=== PATIENT | female | born 2000 | race Caucasian/White ===

== ENCOUNTER 2023-02-25 20:19 | Emergency (ER) | payer MEDICAID, SELFPAY ==
[2023-02-25 20:22] VITALS: BP 133/74; PULSE 81; RESP 18; TEMP 36.6; O2SAT 97; BMI 34.0
--- NOTE | 2023-02-25 20:40 | ED.GENADULT ---
HPI - General Adult General Chief complaint: Upper Respiratory Symptoms Stated complaint: asthma, sob,wheezing Time Seen by Provider: 02/25/23 20:33 Source: patient, RN notes reviewed and old records reviewed Mode of arrival: ambulatory Limitations: no limitations History of Present Illness HPI narrative: 22-year-old female with past medical history significant for asthma presents for evaluation of ?being sick. ? The patient reports that she has had cough, congestion for about 2 months. She states that over the last week her symptoms worsen with facial pressure, congestion, cough and wheezing. She reports that she has an old inhaler from high school which she use which helped shortness of breath and wheezing Denies any fevers or chills No other complaints or concerns at this time Related Data Previous Rx's Medication Instructions Recorded albuterol sulfate 90 mcg/actuation 2 puff inhalation Q4-6H PRN 02/25/23 aerosol inhaler shortness of breath or wheezing #6.7 grams azithromycin 250 mg tablet 250 mg PO DAILY 4 days #4 tabs 02/25/23 prednisone 20 mg tablet 40 mg (2 x 20 mg) PO DAILY #8 tabs 02/25/23 Allergies Allergy/AdvReac Type Severity Reaction Status Date / Time shellfish derived Allergy Unknown OROPHARENGEAL Verified 02/25/23 20:21 [SHELLFISH DERIVED] SWELLING Review of Systems Constitutional: Constitutional: Denies chills, Denies fever(s), Reports headache(s) and Reports malaise ENT: Reports dry mouth, Reports headache(s), Reports sinus pain, Reports sinus pressure and Reports sore throat Cardiovascular: Cardiovascular: Reports dyspnea Respiratory: Respiratory: Reports cough and Reports dyspnea Gastrointestinal: Gastrointestinal: Denies abdominal pain and Denies nausea Integumentary/Breasts: Skin/Breast: Denies rash Neurologic: Reports headache(s) Physical Exam ED Vital Signs: Vital Signs - 24 hr 02/25/23 20:22 Temperature 97.9 F Pulse Rate 81 Respiratory Rate 18 Blood Pressure 133/74 Pulse Oximetry 97 Oxygen Delivery Method Room Air BMI result Body Mass Index 34.0 Const General: healthy appearing, comfortable, no acute distress, alert and awake Nutritional Appearance: well nourished Orientation/consciousness: patient oriented x3 HENMT Head: Yes normocephalic and Yes atraumatic Ears: TM's normal bilaterally and EAC's normal Face and sinus: Yes sinus tenderness Eyes Eyelids: Yes eyelids normal Conjunctivae: conjunctivae normal Sclerae: sclerae normal Corneas: corneas normal Pupils: Equal, round and reactive pupils present EOM: EOMs intact bilaterally Neck Neck: Yes full ROM Resp Effort & Inspection: normal respiratory effort, able to speak in complete sentences and not labored Auscultation: wheezes Cardio Rate: regular rate Rhythm: regular rhythm GI Inspection: No distended Palpation (GI): Soft to palpation, not firm, nontender, no guarding and not rigid Skin General skin exam: elasticity normal Neuro General: patient oriented x3 Cranial nerves: Yes Equal, round and reactive pupils present and Yes Bilaterally intact EOM present Cognition (Neuro): normal cognition Extrem Other: Moving all extremities well without any obvious deformities Medical Decision Making Medical Decision Making MDM Narrative: 22-year-old female presents for evaluation of upper respiratory symptoms for the last couple of months that worsened over the last week. She has wheezing on exam with stable vital signs. She has sinus pressure. Will treat her with azithromycin and prednisone for an upper respiratory infection given the duration of her symptoms. She had a negative COVID test earlier today. Patient given a breathing treatment prior to discharge Differential Diagnosis Differential Diagnoses: The differential diagnosis associated with the presentation includes Upper respiratory infection Viral syndrome Sinusitis Pneumonia Bronchitis COVID-19 Discharge Plan Discharge Clinical Impression: Upper respiratory infection Patient Disposition: Home, Self-Care Instructions: Upper Respiratory Infection (ED) Prescriptions: New prednisone 20 mg tablet 40 mg PO DAILY Qty: 8 0RF azithromycin 250 mg tablet 250 mg PO DAILY 4 Days Qty: 4 0RF Rx Instructions: start on day 2 of therapy albuterol sulfate 90 mcg/actuation HFA aerosol inhaler 2 puff inhalation Q4-6H PRN (Reason: shortness of breath or wheezing) Qty: 6.7 0RF
[2023-02-25] MEDS: Azithromycin 500 MG TABLET PO (20:41)
[2023-02-25] MEDS: predniSONE 20 MG TABLET 40 MG PO (20:41)
--- NOTE | 2023-02-25 20:42 | PC.NURSE ---
pt medicated per jul, resp notified RE bronch protocol.
[2023-02-25] MEDS: Albuterol Sulfate (0.083%) 2.5 MG/3 ML VIAL.NEB INHALE (20:59)
[2023-02-25 21:00] VITALS: PULSE 81; RESP 18; O2SAT 97
== END 2023-02-25 21:02 | disposition home or self-care (01) ==
LOC: HO.ED 21:00
PROVIDERS: Emergency Provider Emergency Medicine
DX: J06.9 Acute upper respiratory infection, unspecified (principal); R06.02 Shortness of breath
CPT/HCPCS: 94640; 99283; 99284

== ENCOUNTER 2023-03-28 15:15 | Emergency (ER) | payer OTHER, SELFPAY ==
--- NOTE | ~2023-03-28 | XR_ITS ---
EXAMINATION: XR CHEST CLINICAL INFORMATION: Cough. COMPARISON: None available. TECHNIQUE: 2 views of the chest were obtained. FINDINGS: No significant abnormality is noted involving the heart, lungs, mediastinum, bony thorax or soft tissues. XR/XR chest 2V IMPRESSION: Unremarkable chest examination.
[2023-03-28 15:56] VITALS: BP 124/96; PULSE 114; RESP 16; TEMP 37.3; O2SAT 95; BMI 36.2
--- NOTE | 2023-03-28 15:56 | ED_ITS ---
HPI - URI/Sore Throat General Chief Complaint: Upper Respiratory Symptoms Stated Complaint: congested cough,headache Time Seen by Provider: 03/28/23 17:06 Source: patient Mode of arrival: ambulatory Limitations: no limitations History of Present Illness HPI Narrative: 22 year old female with pmhx significant for asthma presents to the ED wtih complaint of headache, nasal congestion, sore throat, wheezing and cough x1 week. Reports cough is productive of yellow/green sputum. Denies nausea however states that her coughing causes her to gag. No documented fever at home. Reports sick contacts. Denies fever, chills, vision changes, ear pain, eye pain, difficulty swallowing or breathing, sob, N/V, abdominal pain, diarrhea, constipation. She was evaluated in the ED 1 month ago for upper respiratory infection. She completed treatment with complete resolution of symptoms. Symptoms returned approximately 1 week ago. Has been taking using her albuterol inhaler and taking Sinex at home without relief Related Data Previous Rx's Medication Instructions Recorded albuterol sulfate 90 mcg/actuation 2 puff inhalation Q4-6H PRN 02/25/23 aerosol inhaler shortness of breath or wheezing #6.7 grams azithromycin 250 mg tablet 250 mg PO DAILY 4 days #4 tabs 02/25/23 prednisone 20 mg tablet 40 mg (2 x 20 mg) PO DAILY #8 tabs 02/25/23 azithromycin 250 mg tablet See Rx Instructions PO .COMPLEX #6 03/28/23 (Zithromax Z-Hamilton) tabs benzonatate 100 mg capsule 100 mg PO BID PRN cough #14 caps 03/28/23 prednisone 20 mg tablet 40 mg (2 x 20 mg) PO DAILY 5 days 03/28/23 #10 tabs Allergies Allergy/AdvReac Type Severity Reaction Status Date / Time shellfish derived Allergy Unknown OROPHARENGEAL Verified 03/28/23 15:56 [SHELLFISH DERIVED] SWELLING Review of Systems Review of Systems: Constitutional: No fever, chills, fatigue, night sweats, weight changes ENT/Mouth: No ear pain, hearing loss, +nasal congestion, No sinus pain, rhinorrhea, +sore throat Eyes: No eye pain, swelling, redness, vision changes, discharge Cardio: No chest pain, palpitations, MENDEZ, orthopnea, peripheral edema Pulm: No SOB, +cough, +sputum, +wheezing, No dyspnea, hemoptysis GI: No nausea, vomiting, hematemesis, abdominal pain, diarrhea, constipation, hematochezia, melena : No irregular bleeding, dysuria, frequency, urgency, hesitancy, hematuria, flank pain MSK: No back pain, neck pain, joint pain, myalgias Skin: No lesions, rashes Neuro: No weakness, numbness, paresthesias, LOC, dizziness, +headache All other systems reviewed and are negative. [facility] Past Medical History Attestation statement: The following information was validated with the patient. Source: old records reviewed and nursing notes reviewed Social History Smoked in Last 30 Days: No Use of substances other than those prescribed or required for medical reasons: Yes Substance Use Type: Marijuana Advance Directives: No Advance Directives Information Provided: No Patient : No Physical Exam Vital Signs: Vital Signs: Last Vital Signs Temp 98.9 F 03/28/23 17:45 Pulse 111 H 03/28/23 17:45 Resp 16 03/28/23 17:45 BP 138/87 03/28/23 17:45 Pulse Ox 96 03/28/23 17:48 O2 Del Method Room Air 03/28/23 17:48 BMI result Body Mass Index 36.2 Vital signs notable for tachycardia secondary to albuterol treatment, otherwise WNL. Afebrile. Const: General: cooperative, comfortable, no acute distress, alert and awake Orientation/consciousness: patient oriented x3 Limitations: no limitations HEENT: Other: + posterior oropharynx mildly erythemato us. No edema. Uvula midline. No tonsillar exudates. No chetan tonsillar mass. Controlling secretions and speaking complete sentences. Head: Yes normal to inspection Ears: hearing grossly normal bilaterally, external ears normal, TM's normal bilaterally, EAC's normal, mastoids normal and no periauricular adenopathy General nose exam: Normal external nose present Face and sinus: Yes normal facial exam and Yes sinuses nontender Mouth: Normal oral and palatal mucosa present and moist mucous membranes Eyes: General: appearance normal, both eyes and all related structures Conjunctivae: conjunctivae normal Sclerae: sclerae normal Pupils: Equal, round and reactive pupils present Neck: Neck: Yes normal visual inspection, Yes no lymphadenopathy and Yes no meningeal signs Chest: Chest palpation & inspection: normal inspection of the chest and normal palpation of entire chest wall Resp: Other: + expiratory wheezes bilaterally Effort & Inspection: normal respiratory effort, able to speak in complete sentences, Actively coughing, no respiratory distress and no tripod positioning Auscultation: clear to auscultation bilaterally Cardio: Rate: tachycardic Rhythm: regular rhythm Peripheral pulses: radial pulses present GI: Inspection: Yes normal to inspection Palpation (GI): Soft to palpation, nontender and no splenomegaly Skin: General skin exam: no rashes or lesions noted Neuro: General: patient oriented x3, gait normal, moves all extremities and no meningeal signs Cranial nerves: Yes Equal, round and reactive pupils present Extrem: General: Yes normal to inspection and Yes capillary refill normal Course Course Course Narrative: RME: 22yo F w/ PMHx asthma presenting to the ED c/o cough, SOB, wheezing, KEARNEY, nausea, chills, vomiting x4 days. Also reports left lower dental pain. +sick contacts. denies fever, travel Viral testing, strep, CXR, albuterol inhaler ordered Full HPI, ROS and PE to be performed by primary ED provider. Reevaluation(s) Reevaluation #1: 1800-- Patient's lungs are clear to auscultation after albuterol treatment by respiratory therapy. She is noted to be tachycardic secondary to albuterol treatment prior to arrival in ED and a 2nd treatment in the ED. she has tested negative for COVID, flu a, strep throat. Likely URI. She is currently tolerating crackers and water in ED. Will send Fabiola Gotti-Hamilton, prednisone to patient's pharmacy. Discussed strict return precautions. All questions answered at this time. Patient is agreeable disposition stable for discharge. Medications Administered Discontinued Medications Generic Name Dose Route Start Last Admin Trade Name Freq PRN Reason Stop Dose Admin Albuterol Sulfate 4 puff 03/28/23 15:59 03/28/23 16:21 Albuterol Sulfate 90 Mcg 8 Gm Inhaler INHALE 03/28/23 16:00 4 puff ONCE ONE Administration Medical Decision Making Medical Decision Making MDM Narrative: 22 year old female with pmhx significant for asthma presents to the ED wt complaint of headache, nasal congestion, sore throat, and cough x1 week. Vital signs notable for tachycardia secondary to albuterol administration [employer] and in ED. Patient nontoxic appearing and in no acute distress. Bilateral EACs and TMs WNL. Posterior oropharynx mildly erythematous without edema or tonsillar exudates. No peritonsillar mass. Uvula is midline. Controlling secretions and speaking complete sentences. Lungs with bilateral expiratory wheezes. Exam nonfocal. Pulses 2+ throughout. Plan for serology, CXR, and re-evaluation. Differential Diagnosis Differential Diagnoses: The differential diagnosis associated with the presentation includes As above. Admission/Observation Not indicated. Lab Data MDM Lab Attestation statement: I reviewed the patient's lab results. As above. Labs: Lab Results 03/28/23 Range/Units 16:17 COVID-19 (CHARLIE) Negative (Negative) COVID-19 Clin Com See Note Influenza Type A (CAM) Negative (Negative) Influenza Type B (CAM) Negative (Negative) Influenza A & B Note See Note S. pyogenes GrpA CAM Negative (Negative) Independent Interpretation I performed an independent interpretation of an: Plain X-Ray Interpretation: Chest x-ray without consolidation or infiltrates to suggest pneumonia, agree with radiologist's interpretation. Radiology Impression Discussion of test interpretation with radiology: I have reviewed the radiologist's reading. Radiologist Impression: XR chest 2V IMPRESSION: Unremarkable chest examination. Independent Historian Clinical information obtained from an independent historian. History obtained from or confirmed by: Friend External Record Review External record reviewed: Inpatient record Prescription Management I considered prescription management with: Antibiotic and Other (steroid) Chronic Conditions Patient?s care impacted by: Other (asthma) Critical Care Time Critical Care Time Critical Care Time: No Discharge Plan Discharge Clinical Impression: Upper respiratory infection Patient Disposition: Home, Self-Care Instructions: Upper Respiratory Infection (ED) Additional Instructions: You tested negative for COVID, influenza, strep throat today. Your chest x-ray did not demonstrate pneumonia. You likely have an upper respiratory infection. Tessalon Perles have been sent to pharmacy. Take these as needed for cough. Azithromycin is an antibiotic that has been sent to your pharmacy. Take this over the next 5 days as prescribed. Take this to completion and do not miss any doses. Prednisone is a steroid that has been sent to your pharmacy. Take this over the next 5 days to help with airway inflammation/ irritation. You may also continue using your inhaler at home as needed for wheezing. Please follow-up with your primary care provider. If symptoms persist or worsen please return to the emergency department. In the case of an emergency call 911. Prescriptions: New prednisone 20 mg tablet 40 mg PO DAILY 5 Days Qty: 10 0RF benzonatate 100 mg capsule 100 mg PO BID PRN (Reason: cough) Qty: 14 0RF azithromycin [Zithromax Z-Hamilton] 250 mg tablet See Rx Instructions .ROUTE .COMPLEX Qty: 6 0RF Rx Instructions: For 250 mg dose pack: take 500 mg today (day 1), then 250 mg for 4 days (days 2-5) No Action prednisone 20 mg tablet 40 mg PO DAILY Qty: 8 0RF azithromycin 250 mg tablet 250 mg PO DAILY 4 Days Qty: 4 0RF Rx Instructions: start on day 2 of therapy albuterol sulfate 90 mcg/actuation HFA aerosol inhaler 2 puff inhalation Q4-6H PRN (Reason: shortness of breath or wheezing) Qty: 6.7 0RF Referrals: Physician,Unknown J [Primary Care Provider] -
[2023-03-28 16:21] VITALS: PULSE 110; RESP 18; O2SAT 98
[2023-03-28] MEDS: Albuterol Sulfate 90 MCG 8 GM INHALER 4 PUFF INHALE (16:21)
[2023-03-28 16:47] LABS: IDNOW Serial# 08D9AD1C
[2023-03-28 16:48] LABS: Strep A Nucleic Acid Negative (Negative)
[2023-03-28 16:54] LABS: COVID-19 Test Negative (Negative); IDNOW Serial# BCCEAD1C
[2023-03-28 16:57] LABS: IDNOW Serial# 9DB6401D; Influenza A Negative (Negative); Influenza B2 Negative (Negative)
--- OUTSIDE RECORDS SUMMARY | 2023-03-28 17:12 | XMS_ITS | Patient Health Record ---
Author Name Unknown Organization [facility]. Address [address], [place] [id number] Care Team Providers Care Woodworker Helper Name Role Phone SEGUNDO BLISS Unavailable [phone] Penny Gupta Unavailable [phone] PROBLEMS Type Condition ICD9-CM Code [id number] Code Onset Dates Condition Status W/U Status Risk SNOMED Code Notes Problem Allergic rhinitis J30.9 confirmed 25063837 Problem Anxiety F41.9 confirmed [id number] ALLERGIES No Known Allergies ENCOUNTERS from 2001 to 2023-03-28 Encounter Location Date Provider Diagnosis [facility] [address] [phone] Oct, SEGUNDO BLISS Anxiety F41.[address] [facility] [address] [place] [id number] Jul, SEGUNDO BLISS Anxiety F41.[address] [facility] [address] [id number] Oct, SEGUNDO BLISS Anxiety F41.9 ; Fatigue R53.83 and Anemia D64.[address] [facility] [address] [place] [phone] Jan, SEGUNDO BLISS [facility] [address] [place] [phone] Jan, SEGUNDO BLISS Allergic rhinitis J30.[address] [facility] [address] [place] [address] [id number] Jan, SEGUNDO BLISS [facility] [address] [place] [phone] Jan, SEGUNDO BLISS Allergic rhinitis J30.9 ; Anxiety F41.9 ; Fatigue R53.83 and Toe pain, right M79.674 SOCIAL HISTORY Tobacco Use: Social History Observation Description Date Details (start date - stop date) Never Smoker Sex Assigned At : Social History Observation Description Sex Assigned At Unknown Smoking: Question Answer Notes Are you a: never smoker Alcohol screening: Question Answer Notes Did you have a drink containing alcohol in the p ast year? Yes Points 0 Interpretation Negative How often did you have six o r more drinks on one occasion in the past year? Never (0 points) How many drinks did you have on a typical day when you were drinking in the past year? 1 or 2 (0 points) How often did you have a dri nk containing alcohol in the past year? Never (0 points) REASON FOR REFERRAL No Information VITAL SIGNS from 2001 to 2023-03-28 Height 63.25 in Oct, Weight 199.2 lbs Oct, BMI 35.00 kg/m2 Oct, Heart Rate 86 /min Oct, Temperature 98.0 degrees Fahrenheit Oct, Respiratory Rate 16 /min Oct, Oximetry 99 Oct, Blood pressure systolic 120 mm Hg Oct, Blood pressure diastolic 70 mm Hg Oct, MEDICATIONS Medication SIG (Take, Route, Frequency, Duration) Notes Start Date End Date Status Loratadine 10 MG take 1 tablet by lisa th once daily if needed for allergies for 30 days Active hydrOXYzine HCl 25 MG 1 tablet Orally Ev chari 6 hours as needed for anxiety for 30 days Oct, Active Fluticasone Propionate 50 MCG/ACT 2 sprays in each nostril Nasally Once a day as as needed for allergic rhinitis for 30 days Jan, Active busPIRone HCl 10 MG 1 tablet Orally Twic e a day Jul, Active RESULTS from 2001 to 2023-03-28 Component Value Reference Range Notes Panel, Iron Reviewed date:01/28/2022 11:44:53 Interpretation:see scanned cbc Performing Lab:[facility] [address] Notes/Report: IRON TOT.IRON BIND.CAP. TRANSFERIN % SAT. (Serum) Qualitativ e Reviewed date:01/28/2022 11:44:40 Interpretation:see scanned cbc Performing Lab:[facility] [address] Notes/Report: (Serum) Qualitative CBC with Diff Reviewed date:01/28/2022 11:43:54 Interpretation: Performing Lab:[facility] [address] Notes/Report: WBC Count RBC Count Hemoglobin Hematocrit MCV MCH MCHC RDW-SD RDW-CV Platelet Mean Plt Volume NRBC'S Diff Type Differential CBC Absolute Neutrophil Calculated TSH with Reflex to T4 Free Reviewed date:01/28/2022 11:44:28 Interpretation:see scanned cbc Performing Lab:[facility] [address] Notes/Report: TSH REFLEX TESTING Vitamin B12 (Performed at [facility]) Reviewed date:01/28/2022 11:45:18 Interpretation:see scanned cbc Performing Lab:[place] [address] Notes/Report: VIT. B12 Panel, Comprehensive Metabol ic Reviewed date:01/28/2022 11:45:05 Interpretation:see scanned cbc Performing Lab:[facility] [address] Notes/Report: Calcium AST Alk Phosphatase Bilirubin Total Protein Total Albumin Globulin Albumin Globulin Ratio Sodium Potassium Chloride Carbon Dioxide Anion Gap UREA NITROGEN CREATININE BUN/CREAT. RATIO GLUCOSE ALT ESTIMATED GFR CBC without Differential Reviewed date:01/30/2021 16:01:04 Interpretation:Normal Performing Lab:[facility] [address] Notes/Report: HEMATOCRIT 40.1 % 36-44 % HEMOGLOBIN 12.5 GM/DL 12.0-15.0 GM/DL MCH 26.1 PG 26-34 PG MCHC 31.2 % 31-37 % MCV 83.7 FL 80-100 FL MEAN PLT VOL 12.0 CU 7.0-12.6 CU PLATELET 368 K/UL 150-450 K/UL RBC COUNT 4.79 M/UL 4.0-4.9 M/UL RDW-CV 13.6 % 11.7-15.0 % RDW-SD 41.9 FL 37.0-54.0 FL WBC COUNT 8.6 K/UL 4.5-11.0 K/UL (Serum) Qualitativ e Reviewed date:01/30/2021 16:01:04 Interpretation:Negative Performing Lab:[place] [address] Notes/Report: HCG QUALITATIVE Performed at [address] [address] TSH with Reflex to T4 Free Reviewed date:01/30/2021 16:01:04 Interpretation:Normal Performing Lab:[facility] [address] Notes/Report: TSH Performed at [address] [place] [address] Vitamin B12 (Performed at [facility]) Reviewed date:01/30/2021 16:01:04 Interpretation:Normal Performing Lab:[place] [address] Notes/Report: VIT. B12 Performed at [address] [address] Panel, Comprehensive Metabol ic Reviewed date:01/30/2021 16:01:04 Interpretation:Normal Performing Lab:[place] [address] Notes/Report: A/G RATIO 1.2 RATIO 1.5-3.0 RATIO ALBUMIN 4.3 GM/DL 3.5-5.0 GM/DL ALK PHOSPHATASE 85 U/L 35-125 U/L ALT 13 U/L 5-40 U/L ANION GAP 14 MMOL/L 0-19 MMOL/L AST 16 U/L 5-40 U/L BUN/CREAT. RATIO 20.0 RATIO 8-21 RATIO UREA NITROGEN 16 MG/DL 8-25 MG/DL TOTAL CALCIUM 9.7 MG/DL 8.5-10.4 MG/DL CHLORIDE 106 MMOL/L 97-107 MMOL/L CARBON DIOXIDE 21 MMOL/L 24-31 MMOL/L CREATININE 0.8 MG/DL 0.4-1.6 MG/DL ESTIMATED GFR Performed at [address] [place] [address] GLOBULIN 3.6 G/DL 1.9-3.7 G/DL GLUCOSE 82 MG/DL 65-99 MG/DL POTASSIUM 4.2 MMOL/L 3.4-5.1 MMOL/L SODIUM 141 MMOL/L 133-145 MMOL/L BILIRUBIN,TOTAL 0.3 MG/DL 0.1-1.2 MG/DL PROTEIN, TOTAL 7.9 G/DL 5.9-7.9 G/DL XR Toes Right Min 2 Views 73 [phone] Reviewed date:02/04/2021 16:28:13 Interpretation: Performing Lab:[facility] [address] Notes/Report: REASON FOR VISIT No Information MEDICAL (GENERAL) HISTORY Type Description Date Surgical History wisdom teeth extraction 10/2021 MENTAL STATUS No Information ASSESSMENTS Encounter Date Diagnosis Assessment Notes Treatment Notes Treatment Clinical Notes Oct, Anxiety (ICD-10 - F41.9) Jul, Anxiety (ICD-10 - F41.9) Oct, Anxiety (ICD-10 - F41.9) Oct, Fatigue (ICD-10 - R53.83) Oct, Anemia (ICD-10 - D64.9) Jan, Allergic rhinitis (ICD-10 - J30.9) Jan, Anxiety (ICD-10 - F41.9) See Dr. Mixon at [facility] in [place] [address] numbers [phone] Jan, Allergic rhinitis (ICD-10 - J30.9) Patient referred to Dr. Nicole in Allergy Jan, Fatigue (ICD-10 - R53.83) Jan, Toe pain, right (ICD-10 - M79.674) See Dr. Villegas Jan, Other Penny García, attest that this documentation has been prepared under the direction and in the presence of Segundo Bliss DO. By signing below, Segundo García DO, personally performed the services described in this documentation. All medical record entries made by the scribe were at my direction and in my presence. I have reviewed the chart and agree that the record reflects my personal performance and is accurate and complete PLAN OF TREATMENT Medication Medication Name Sig Start Date Stop Date Loratadine 10 MG take 1 tablet by once daily if needed for allergies for 30 days Fluticasone Propionate 50 MCG/ACT 2 sprays in each nostril Nasally Once a day as as needed for allergic rhinitis for 30 days Jan, hydrOXYzine HCl 25 MG 1 tablet Orally Ev chari 6 hours as needed for anxiety for 30 days Oct, Treatment Notes Assessment Notes Clinical Notes Anxiety See Dr. Mixon at [facility] in [place] on [address] numbers [phone] Allergic rhinitis Patient referred to Dr. Nicole in Allergy Toe pain, right See Dr. Villegas Insurance Providers Payer Name Payer Address Payer Phone Insured Name Patient Relationship to Insured Coverage Start Date Coverage End Date Subscriber Number Group Number [facility] [place] [address] [facility] [id number] OBDULIA KOVACS Self - patient is the insured [id number]
[2023-03-28 17:45] VITALS: BP 138/87; PULSE 111; RESP 16; TEMP 37.2; O2SAT 96
[2023-03-28 17:48] VITALS: O2SAT 96
--- NOTE | 2023-03-28 18:00 | PC.NURSE ---
a&ox3, vss and up to date at this time. pt resting in no apparent distress at this time. no sob/wob noted at this time. pt able to speak in full/clear sentences w/o difficulty. respirations even and unlabored. partner bedside. call acharya placed within reach.
[2023-03-28] MEDS: predniSONE 20 MG TABLET 40 MG PO (18:28)
== END 2023-03-28 18:29 | disposition home or self-care (01) ==
PROVIDERS: Physician Assistant; Emergency Provider Internal Medicine
DX: J06.9 Acute upper respiratory infection, unspecified (principal); R51.9 Headache, unspecified; R05.9 Cough, unspecified; J02.9 Acute pharyngitis, unspecified; Z11.52 Encounter for screening for COVID-19; Z20.822 Contact with and (suspected) exposure to COVID-19; Z79.899 Other long term (current) drug therapy
CPT/HCPCS: 71046; 87502; 87635; 87651; 94640; 99284; 99285